=== PATIENT | female | born 1945 | race Caucasian/White ===

== ENCOUNTER 2022-03-13 11:20 | Emergency (ER) | payer MEDICARE ==
[~2022-03-13] VITALS: Ht 165.1 cm; Wt 50.8 kg
[2022-03-13] MEDS ORDERED: IV NORMAL SALINE 500 ML BAG IV ONE (11:30)
[2022-03-13] MEDS ORDERED: TDAP DIPH,PERTUSS,TET VAC/PF 0.5 ML DISP.SYRIN IM ONE ×2 (11:30→12:01)
[2022-03-13 11:48] LABS: HEMATOCRIT 38.3 % (31.2-41.9); MEAN CORPUSCULAR HEMOGLOBIN 29.8 uug (24.7-32.8); MEAN CORPUSCULAR VOLUME 87.3 fL (75.5-95.3); PLATELET COUNT (AUTO) 225 K/uL (179-408)
[2022-03-13 12:01] LABS: BILIRUBIN,TOTAL 0.9 mg/dL (0.2-1.0); CREATININE 0.6 mg/dL (0.6-1.3); POTASSIUM 3.7 mmol/L (3.5-5.1); TOTAL PROTEIN, SERUM 7.1 g/dL (6.4-8.2)
[2022-03-13] MEDS ORDERED: ACETAMINOPHEN 325 MG TABLET PO ONE (12:15)
[2022-03-13] MEDS ORDERED: ACETAMINOPHEN 325 MG TABLET ONE (12:22)
[2022-03-13] MEDS ORDERED: IOHEXOL 300MG/ML 100 ML INFUS..BTL ONE (12:49)
[2022-03-13] MEDS ORDERED: SWABABLE VALVE TRANSFER SET EA MC ONE (12:49)
[2022-03-13] MEDS ORDERED: IV NORMAL SALINE 250 ML IV ONE (12:49)
[2022-03-13 15:12] VITALS: BP 130/72
--- NOTE | 2022-03-13 15:12 | NUR ---
Patient discharged to home in stable condition. Written and verbal after care instructions given. Patient verbalizes understanding of instructions. Stressed follow up or return to ER for worsening s/s.
== END 2022-03-13 15:13 ==
LOC: ER 11:20
DX: M25.561 Pain in right knee (principal); S00.212A Abrasion of left eyelid and periocular area, initial encounter; W06.XXXA Fall from bed, initial encounter; Y92.092 Bedroom in other non-institutional residence as the place of occurrence of the external cause; I10 Essential (primary) hypertension; K51.90 Ulcerative colitis, unspecified, without complications; Z90.49 Acquired absence of other specified parts of digestive tract; Z85.3 Personal history of malignant neoplasm of breast
CPT/HCPCS: 99285; 70450; 96360; 71045; 96361; 80053; 85025; 84484; 36415; 93005; 73564; 72125; 90715; 90471; Q9967; J7040; A4663

== ENCOUNTER 2022-07-08 14:45 | Emergency (ER) | payer OTHER, MEDICARE ==
[~2022-07-08] VITALS: Ht 152.4 cm; Wt 43.5 kg
--- NOTE | 2022-07-08 15:04 | NUR ---
[email or web address], medical screening exam in progress
[2022-07-08] MEDS ORDERED: HYDR-4209 PO (17:10)
--- NOTE | 2022-07-08 17:11 | NUR ---
Patient wants to leave now before the radiology results are back, MD notified.
--- NOTE | 2022-07-08 17:16 | NUR ---
Patient discharged to home by Dr Sweeney in stable condition with steady gait while using her own walker. Written and verbal after care instructions given. Patient verbalized understanding and compliance of instructions. Stressed follow up with primary doctor or return to ER for worsening s/s.
[2022-07-08 17:17] VITALS: BP 130/81
== END 2022-07-08 17:20 | disposition home or self-care (01) ==
LOC: ER 14:45
DX: S20.212A Contusion of left front wall of thorax, initial encounter (principal); Z79.899 Other long term (current) drug therapy; W51.XXXA Accidental striking against or bumped into by another person, initial encounter; Y93.89 Activity, other specified; Y92.89 Other specified places as the place of occurrence of the external cause; Y99.8 Other external cause status
CPT/HCPCS: 71101; A4663